=== PATIENT | male | born 1960 | race Caucasian/White ===

== ENCOUNTER → 2019-01-17 | Outpatient (CLI) | payer MEDICARE ==
--- NOTE | 2019-01-17 21:52 | CTL ---
EXAMINATION TYPE: CT Low Dose Lung DATE OF EXAM ORDERED: 01/17/2019 HISTORY: . Lung cancer screening CT DLP: [address] CTDI: 2.22 mGy Automated exposure control for dose reduction was used. SCREENING VISIT: Initial COMPARISON: None TECHNIQUE: Low dose computed tomography scan was performed through the chest at 1 mm thick sections a nd reconstructed images in the coronal plane at [address] DIAGNOSTIC QUALITY: Satisfactory FINDINGS: LUNG NODULES: Present, detailed below: There is a curvilinear density in the right apex with a width of 0.4 cm. This could be some scarring. Some additional stranding is in the posterior right apex. LUNGS: COPD: Severity: Moderate Fibrosis: Severity: None Lymph nodes: None Other findings: None RIGHT PLEURAL SPACE: Effusion: None Calcification: None Thickening: None Pneumothorax: None LEFT PLEURAL SPACE: Effusion: None Calcification: None Thickening: None Pneumothorax: None HEART: Heart Size: Normal Coronary calcification: None Pericardial effusion: None OTHER FINDINGS: Upper abdomen: Normal Bony thorax: Normal Supraclavicular region: Normal Other: The ascending thoracic aorta at the level the main pulmonary artery is 4.0 cm. The main pulmon robe artery the bifurcation is 2.9 cm. IMPRESSION: 1. Curvilinear area at the right apex suspected to be scarring. Short-term follow-up is recommended. Ascending thoracic aortic aneurysm of 4.[address] CHEST RECOMMENDATION: Yes, [address] LUNG RAD: Lung rad 3
== END | disposition home or self-care (01) ==
LOC: RADCTMAIN 13:59
PROVIDERS: ATTEND Family Medicine
DX: Z12.2 Encounter for screening for malignant neoplasm of respiratory organs (principal); Z87.891 Personal history of nicotine dependence

== ENCOUNTER → 2019-11-02 | Outpatient (CLI) | payer MEDICARE ==
--- NOTE | 2019-11-02 09:45 | CTL ---
EXAMINATION TYPE: CT Low Dose Lung DATE OF EXAM ORDERED: 11/02/2019 COMPARISON: January 17, 2019 HISTORY: . Low Dose CT Lung Screening CT DLP: 84.[address] CTDI: 2.23 mGy IV CONTRAST USED: None. SCREENING VISIT: First visit COMPARISON: None. TECHNIQUE: Low dose computed tomography scan was performed through the chest at 1 millimeter thick se ctions and reconstructed images in the coronal plane at [address] DIAGNOSTIC QUALITY: Satisfactory FINDINGS: LUNG NODULES: Right lung: Stable right apical pulmonary nodule measuring 5.5 mm image 33 of 336. Righ t upper lobe posterior pulmonary nodule measuring 4.3 mm image 48 unchanged from prior study. Left lung: Pleural-based nodule left upper lobe measuring 5.2 mm is also unchanged relative to the pr ior study seen best on image 48. No additional nodules identified. LUNGS: COPD: Severity: Mild Fibrosis: Severity:None Lymph nodes: None Other findings: None RIGHT PLEURAL SPACE: Effusion: None Calcification: None Thickening: None Pneumothorax: None LEFT PLEURAL SPACE: Effusion: None Calcification: None Thickening: None Pneumothorax: None HEART: Heart Size: Mildly enlarged Coronary calcification: Mild Pericardial effusion: None OTHER FINDINGS: Upper abdomen: No significant abnormality Bony thorax: Degenerative changes Supraclavicular region: No significant abnormalityOther: No significant abnormalityI IMPRESSION: 1. Stable sub-6 mm pulmonary nodules noted as discussed above. FOLLOW UP CT CHEST RECOMMENDATION: CT LUNG RAD: Probably benign category 3, 6 month follow-up advised. LUNG RAD CATEGORY
== END | disposition home or self-care (01) ==
LOC: RADCTMAIN 08:04
PROVIDERS: ATTEND Family Medicine
DX: Z12.2 Encounter for screening for malignant neoplasm of respiratory organs (principal); R91.1 Solitary pulmonary nodule; F17.210 Nicotine dependence, cigarettes, uncomplicated

== ENCOUNTER → 2020-05-05 | Outpatient (CLI) | payer MEDICARE ==
--- NOTE | 2020-05-05 12:36 | CTL ---
EXAMINATION TYPE: CT Low Dose Lung DATE OF EXAM ORDERED: 05/05/2020 HISTORY: Lung cancer screening CT DLP: 89.[address] CTDI: 2.1 mGy Automated exposure control for dose reduction was used. SCREENING VISIT: Follow-up COMPARISON: 11/02/2019 TECHNIQUE: Low dose computed tomography scan was performed through the chest at 1 mm thick sections a nd reconstructed images in the coronal plane at [address] DIAGNOSTIC QUALITY: Satisfactory FINDINGS: LUNG NODULES: Present, detailed below: 1. There is a 0.7 cm density adjacent to emphysematous change may be a small area of scarring or nodu le. Series 4 image 62. This was present previously and appears stable. 2. There is a 0.4 cm peripheral nodule right mid upper lung field. Series 4 image 24. This was presen t previously and appears better visualized. 3. There is a 0.5 cm nodule posterior lateral right apex present previously. LUNGS: COPD: Severity: Moderate Fibrosis: Severity: None Lymph nodes: None Other findings: None RIGHT PLEURAL SPACE: Effusion: None Calcification: None Thickening: None Pneumothorax: None LEFT PLEURAL SPACE: Effusion: None Calcification: None Thickening: None Pneumothorax: None HEART: Heart Size: Normal Coronary calcification: Minimal Pericardial effusion: None OTHER FINDINGS: Upper abdomen: Unremarkable Bony thorax: Normal Supraclavicular region: Normal Other: Ascending thoracic aorta at the level the main pulmonary artery is 3.7 cm patent main pulmonar y artery the bifurcation is 2.6 cm. IMPRESSION: Probably benign findings FOLLOW UP CT CHEST RECOMMENDATION: Follow-up low dose screening CT chest [address] LUNG RAD: 3
== END | disposition home or self-care (01) ==
LOC: RADCTMAIN 08:04
PROVIDERS: ATTEND Family Medicine
DX: Z12.2 Encounter for screening for malignant neoplasm of respiratory organs (principal); Z87.891 Personal history of nicotine dependence

== ENCOUNTER → 2020-11-18 | Outpatient (CLI) | payer MEDICARE ==
--- NOTE | 2020-11-18 12:26 | CTL ---
EXAMINATION TYPE: CT Low Dose Lung DATE OF EXAM ORDERED: 11/18/2020 HISTORY: . Lung cancer screening CT DLP: 124.[address] CTDI: 3.10 mGy Automated exposure control for dose reduction was used. SCREENING VISIT: COMPARISON: 05/05/2020 TECHNIQUE: Low dose computed tomography scan was performed through the chest at 1 mm thick sections a nd reconstructed images in the coronal plane at [address] DIAGNOSTIC QUALITY: Satisfactory FINDINGS: LUNG NODULES: 1. Stable 7 mm nodule right upper lobe apex. 2. Stable 4 mm peripheral nodule right mid upper lung field unchanged. 3. Stable 5 mm nodule posterior lateral right lung apex. LUNGS: Apical pleural thickening seen with diffuse changes of COPD. No pleural calcifications or evidence of pleural effusion. No pneumothorax. Subsegmental basilar atelectasis favored over infiltrate. No cons olidative pneumonia. No overt failure. Hypodensity within the liver measuring approximately 1 cm left lobe stable. Hypertrophic and degenerative change of the spine. Stable sclerosis involving the right rib cage too small to characterize hypertrophic and degenerative change of the spine IMPRESSION: 1. Stable pulmonary nodules unchanged from prior exam. 2. Diffuse COPD. CT LUNG RAD AND CT CHEST RECOMMENDATION: Lung-Rad 2 Benign Appearance or Behavior: Continue annual sc reening with LDCT in 12 months.
== END | disposition home or self-care (01) ==
LOC: RADCTMAIN 11:18
PROVIDERS: ATTEND Family Medicine
DX: Z12.2 Encounter for screening for malignant neoplasm of respiratory organs (principal); J44.9 Chronic obstructive pulmonary disease, unspecified; R91.8 Other nonspecific abnormal finding of lung field; Z87.891 Personal history of nicotine dependence
CPT/HCPCS: 71271

== ENCOUNTER → 2021-06-05 | Outpatient (CLI) | payer MEDICARE ==
--- NOTE | 2021-06-05 17:51 | CT ---
EXAMINATION TYPE: CT lumbar spine wo con DATE OF EXAM: 06/05/2021 COMPARISON: None HISTORY: Low back pain CT DLP: 800.50 mGycm CONTRAST: None TECHNIQUE: CT of the lumbar spine is performed on a spiral scan at 3 mm thick sections. Reconstructed images are performed in the coronal and sagittal planes. FINDINGS: T12-L1: No focal disc herniation or significant disc bulge is evident. No spinal canal stenosis or neural foraminal stenosis is present. L1-L2: Mild disc bulge may be present. This extends farther into the far right lateral direction. Cor relate with right L1 radicular symptoms. Severe right foraminal stenosis may be present due to the di sc bulging. This may be better evaluated with MRI should be clinically useful. L2-L3: There is loss of disc height at this level. Facet hypertrophy has some posterior lateral theca l sac compression. Severe bilateral foraminal stenosis is present. L3-L4: Central endplate spurring is present. There is loss of disc height at this level. Severe bilat eral foraminal stenosis is present. Left hemilaminectomy is evident. L4-L5: No focal disc herniation or significant disc bulge is evident. No spinal canal stenosis or n eural foraminal stenosis is present L5-S1: Vacuum disc phenomenon is present. No suspicious disc herniation is evident. Left laminectomy is present. Vertebral alignment appears normal. IMPRESSION: 1. Degenerative disc changes with loss of disc height L2-3 L3-4 posteriorly at L4-5 and diffusely L5- S1. 2. Severe foraminal stenosis due to facet hypertrophy and loss of disc height at L2-3, L3-4 and L4-5. 3. Large broad far right lateral disc bulging or herniation may be displacing the right L1 nerve root outside the foramen. Correlate with right L1 radicular symptoms.
== END | disposition home or self-care (01) ==
LOC: RADCTMAIN 07:10
PROVIDERS: ATTEND Family Medicine
DX: M51.26 Other intervertebral disc displacement, lumbar region (principal); M99.73 Connective tissue and disc stenosis of intervertebral foramina of lumbar region; M51.37 Other intervertebral disc degeneration, lumbosacral region
CPT/HCPCS: 72131

== ENCOUNTER 2021-08-07 11:01 | Day surgery (SDC) | payer MEDICARE ==
[2021-08-05 10:16] VITALS: BMI 27.0
[~2021-08-07 11:01] MED LIST: LACTATED RINGERS 1,000 ML IV SCH
[2021-08-07 11:21] VITALS: TEMP 97.8
[2021-08-07] MEDS ORDERED: LACTATED RINGERS 1,000 ML IV ONE (11:22)
[2021-08-07] MEDS ORDERED: PROPOFOL 10 MG/ML 20 ML VIAL IV ONE (12:43)
--- NOTE | 2021-08-07 12:44 | P.GSHP ---
History of Present Illness H&P Date: 08/07/21 Chief Complaint: History of colon polyps This is a 60-year-old male presents today for. He has previous history of colon polyps. Past Medical History Past Medical History: COPD, Hyperlipidemia History of Any Multi-Drug Resistant Organisms: None Reported Past Surgical History: Back Surgery Additional Past Surgical History / Comment(s): COLONOSCOPY Past Anesthesia/Blood Transfusion Reactions: No Reported Reaction Smoking Status: Former smoker - Past Family History Mother Family Medical History: No Reported History Medications and Allergies Home Medications Medication Instructions Recorded Confirmed Type Budesonide/Formoterol Fumarate 2 puff INHALATION BID 08/05/21 08/05/21 History [Symbicort 160-4.5 Mcg Inhaler] Celecoxib [CeleBREX] 200 mg PO DAILY 08/05/21 08/05/21 History Ipratropium/Albuterol Sulfate 1 puff INHALATION QID 08/05/21 08/05/21 History [Combivent Respimat Inhaler] Rosuvastatin Calcium [Crestor] 20 mg PO DAILY 08/05/21 08/05/21 History Allergies Allergy/AdvReac Type Severity Reaction Status Date / Time No Known Allergies Allergy Unverified 08/05/21 10:09 Surgical - Exam Vital Signs Temp Pulse Resp BP Pulse Ox 97.8 F 78 18 147/78 98 08/07/21 11:20 08/07/21 11:20 08/07/21 11:20 08/07/21 11:20 08/07/21 11:20 - General well developed, well nourished, no distress - Eyes PERRL - ENT normal pinna - Neck no masses - Respiratory normal expansion - Cardiovascular Rhythm: regular - Abdomen Abdomen: soft, non tender Assessment and Plan Assessment: History of colon polyps. We'll perform colonoscopy.
--- NOTE | 2021-08-07 12:58 | P.OP ---
Date of Procedure: 08/07/21 Preoperative Diagnosis: Personal history of colon polyps Postoperative Diagnosis: Normal colonoscopy Procedure(s) Performed: Colonoscopy Anesthesia: MAC Surgeon: Vlad Bee Pathology: none sent Condition: stable Disposition: PACU Description of Procedure: PROCEDURE: The patient was placed on the endoscopy table in the lateral position. Digital rectal examination was performed which revealed no abnormalities. The prostate was symmetrical without nodules. Flexible colonoscope was then placed in the patient's anus and passed throughout the entire colon. The ileocecal valve was visualized. The cecum, ascending, transverse, descending and sigmoid colon were normal. The rectum was normal as well. There were no masses, polyps or diverticula noted in the entire colon. SUMMARY OF FINDINGS: Normal colonoscopy.
[2021-08-07 13:21] VITALS: BP 116/80; PULSE 72; RESP 16
== END 2021-08-07 13:35 | disposition home or self-care (01) ==
LOC: ORWHC2ENDO 11:01
PROVIDERS: ATTEND Surgery
DX: Z12.11 Encounter for screening for malignant neoplasm of colon (principal); J44.9 Chronic obstructive pulmonary disease, unspecified; E78.5 Hyperlipidemia, unspecified; F17.210 Nicotine dependence, cigarettes, uncomplicated; Z98.890 Other specified postprocedural states; Z97.2 Presence of dental prosthetic device (complete) (partial); Z79.51 Long term (current) use of inhaled steroids; Z79.899 Other long term (current) drug therapy; Z79.1 Long term (current) use of non-steroidal anti-inflammatories (NSAID)
CPT/HCPCS: J2704; G0121; 45378

== ENCOUNTER → 2021-11-19 | Outpatient (CLI) | payer MEDICARE ==
--- NOTE | 2021-11-19 09:40 | CTL ---
EXAMINATION TYPE: CT Low Dose Lung DATE OF EXAM ORDERED: 11/19/2021 HISTORY: Long-term tobacco use. Lung cancer screening CT DLP: 132.[address] CTDI: 3.1 mGy Automated exposure control for dose reduction was used. SCREENING VISIT: Fourth study after baseline COMPARISON: Prior studies November 18, 2020 and older studies TECHNIQUE: Low dose computed tomography scan was performed through the chest at 1 mm thick sections a nd reconstructed images in multiple planes at 1 mm and [address] DIAGNOSTIC QUALITY: Satisfactory FINDINGS: LUNG NODULES: Present, detailed below: There is a stable 7 x 5 mm right upper lung nodule axial image 60. Adjacent scarring extending superi chiara redemonstrated. Stable 3 mm right upper lobe nodule axial image 111. A few additional scattered 5 mm subpleural nodules and/or nodular scarring redemonstrated. No new greater than 5 mm pulmonary nodules. LUNGS: COPD: Severity: Moderate Fibrosis: Severity: Moderate Biapical redemonstrated. Lymph nodes: No new greater than 1 cm Other findings: None RIGHT PLEURAL SPACE: Effusion: None Calcification: None Thickening: None Pneumothorax: None LEFT PLEURAL SPACE: Effusion: None Calcification: None Thickening: None Pneumothorax: None HEART: Heart Size: Normal Coronary Calcification: None Pericardial Effusion: None OTHER FINDINGS: Upper abdomen: Stable 1.2 cm thin-walled cyst in the left hepatic lobe axial image 65. Bony thorax: Scoliotic curvature with moderate multilevel spurring and disc space narrowing in the sp ine. Supraclavicular region: None Other: None IMPRESSION: Moderate emphysematous change with apical scarring redemonstrated. Stable small nodules p resumed postinflammatory. No new or enlarging greater than [address] LUNG RAD AND CT CHEST RECOMMENDATION: Lung-Rad 2 Benign Appearance or Behavior: Consider annual sc reening with LDCT in 12 months. S Modifier (other clinically significant findings): None
== END | disposition home or self-care (01) ==
LOC: RADCTMAIN 07:05
PROVIDERS: ATTEND Family Medicine
DX: Z12.2 Encounter for screening for malignant neoplasm of respiratory organs (principal); J43.9 Emphysema, unspecified; R91.8 Other nonspecific abnormal finding of lung field; Z87.891 Personal history of nicotine dependence
CPT/HCPCS: 71271

== ENCOUNTER → 2023-02-01 | Outpatient (CLI) | payer MEDICARE ==
--- NOTE | 2023-02-02 10:56 | CT ---
EXAMINATION TYPE: CT soft tissue neck wo/w con CT DLP: 1235.3 mGycm, Automated exposure control for dose reduction was used. DATE OF EXAM: 02/01/2023 3:47 PM COMPARISON: Pet/CT 01/21/2023. 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 Axial sections with coronal and sagittal reformats were obtained. Contrast used:100 mL of Isovue 300 with IV Contrast, Oral contrast used: none. FINDINGS: Brain: Visualized portions are grossly unremarkable. Orbits: Unremarkable Sinuses: Grossly unremarkable. Spaces of the neck: There remains a well-circumscribed 14 x 9 mm lesion left parotid gland superficia l portion. This does demonstrate postcontrast enhancement. No evidence of adenopathy or organizing fl uid collection within the neck. There remainder of the spaces of the neck are symmetric. Musculoskeletal: No acute osseous pathology. Lymph nodes: Multiple nonenlarged lymph nodes are seen along both anterior chains of the neck. Vascular structures: Visualized major arteries are patent without evidence of aneurysm. Mild calcific ations of the right carotid bifurcation. Visualized. Internal carotid arteries are patent. Mild intra cranial right internal carotid artery calcifications. Thoracic Inlet/airway: Airway is patent. There is severe centrilobular and paraseptal emphysema. Soft tissues/Thyroid: Thyroid and remainder of the soft tissues are unremarkable. Other: none. IMPRESSION 1. Left superficial parotid gland mass which was FDG avid on prior PET scan. 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 This can be confirmed with ultrasound-guided biopsy . Comparisons with priors at outside institutions could show stability. 2. No adenopathy within the neck. 3. Severe emphysema.
== END | disposition home or self-care (01) ==
LOC: RADCTMAIN 15:13
PROVIDERS: ATTEND Family Medicine
DX: D37.030 Neoplasm of uncertain behavior of the parotid salivary glands (principal); J43.9 Emphysema, unspecified
CPT/HCPCS: 70492; Q9967

== ENCOUNTER → 2023-02-11 | Outpatient (CLI) | payer MEDICARE ==
--- NOTE | 2023-02-11 08:45 | CT ---
EXAMINATION TYPE: CT brain wo/w con DATE OF EXAM: 02/11/2023 COMPARISON: None. HISTORY: Newly diagnosed lung cancer CT DLP: 1108 mGycm Automated exposure control for dose reduction was used. CONTRAST: CT scan of the head is performed without and with IV Contrast, patient injected with 75 mL of Isovue 300. FINDINGS: No acute cranial hemorrhage or midline shift identified. The ventricles and sulci are within normal limits in size. Contreras-white matter differentiation is maintained. Postcontrast images show no suspicio us enhancing intraparenchymal masses. The globes are intact and the visualized sinuses are clear. The re is metallic round 3 mm soft tissue foreign body in the right cheek axial image 5. IMPRESSION: No abnormal enhancing masses to suggest metastatic disease to the brain.
== END | disposition home or self-care (01) ==
LOC: RADCTMAIN 07:43
PROVIDERS: ATTEND Internal Medicine Hematology & Oncology
DX: Z03.89 Encounter for observation for other suspected diseases and conditions ruled out (principal); J98.4 Other disorders of lung
CPT/HCPCS: 70470; Q9967

== ENCOUNTER 2023-02-17 12:37 | Day surgery (SDC) | payer MEDICARE ==
[2023-02-17 13:15] VITALS: RESP 16; TEMP 97.6
[2023-02-17] MEDS ORDERED: ALPRAZolam 0.5 MG TAB PO STA (13:29)
--- NOTE | 2023-02-17 14:12 | US ---
ULTRASOUND GUIDED CORE BIOPSY LEFT PAROTID MASS: CLINICAL HISTORY: Left parotid mass FINDINGS: The procedure was explained to the patient. The risks, complications, benefits and alternatives were discussed and any questions were answered. Informed consent was obtained. Patient was placed supin e on the ultrasound table and prepped and draped in the usual sterile fashion. Utilizing a 18-gauge needle, two passes were made into the left parotid nodule. Patient was stable throughout the procedure. Pathology is pending. All elements of maximal barrier and sterile technique were utilized. IMPRESSION: 1. Successful ultrasound guided core biopsy left parotid mass.
[2023-02-17 14:27] VITALS: BP 131/81; PULSE 73
== END 2023-02-17 14:25 | disposition home or self-care (01) ==
LOC: RADPROMAIN 12:37
PROVIDERS: ATTEND Internal Medicine Hematology & Oncology
DX: K11.8 Other diseases of salivary glands (principal)
CPT/HCPCS: 42400; 76942; 88305

== ENCOUNTER → 2023-07-07 | Outpatient (CLI) | payer MEDICARE ==
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
== END | disposition home or self-care (01) ==
LOC: RADUSWWP 13:43
PROVIDERS: ATTEND Family Medicine
DX: S46.211A Strain of muscle, fascia and tendon of other parts of biceps, right arm, initial encounter (principal)